=== PATIENT | female | born 2005 | race African-American/Black ===

== ENCOUNTER 2024-03-21 11:41 | Emergency (ER) | payer OTHER, SELFPAY ==
[2024-03-21 12:02] VITALS: BP 106/73; PULSE 76; RESP 18; TEMP 36.5; O2SAT 100; BMI 26.4
== END 2024-03-21 13:53 | disposition left against medical advice (07) ==
PROVIDERS: Emergency Provider Student in an Organized Health Care Education/Training Program
DX: Z77.098 Contact with and (suspected) exposure to other hazardous, chiefly nonmedicinal, chemicals (principal)
CPT/HCPCS: 99281